=== PATIENT | male | born 1995 | race African-American/Black ===

== ENCOUNTER 2020-04-06 12:32 | Emergency (ER) | payer OTHER ==
[~2020-04-06] VITALS: Ht 182.9 cm; Wt 72.7 kg
[~2020-04-06 12:32] MED LIST: BENZ0.5T44 PO; LURA40TA2 PO
[2020-04-06] MEDS ORDERED: LIDOCAINE 1% 10 ML VIAL INJ ONE (13:30)
[2020-04-06] MEDS ORDERED: PERTUSS(ACELL),DIPH,TET VAC/PF 0.5 ML VIAL IM ONE (13:30)
[2020-04-06] MEDS ORDERED: POVIDONE-IODINE 10% 15 ML SOLUTION UD TP ONE (13:30)
[2020-04-06] MEDS ORDERED: BACITRACIN 0.9 GM PACKET OINTMENT TP ONE (15:30)
[2020-04-06 16:41] VITALS: BP 129/78
== END 2020-04-06 16:44 | disposition home or self-care (01) ==
LOC: EMS 12:32
DX: S61.412A Laceration without foreign body of left hand, initial encounter (principal); F20.9 Schizophrenia, unspecified; R03.0 Elevated blood-pressure reading, without diagnosis of hypertension; W25.XXXA Contact with sharp glass, initial encounter; Y93.89 Activity, other specified; Y92.89 Other specified places as the place of occurrence of the external cause; Y99.8 Other external cause status
CPT/HCPCS: 12002; 73130; 90471; 90715; 99283; J3490

== ENCOUNTER 2020-04-08 08:49 | Emergency (ER) | payer OTHER ==
[~2020-04-08] VITALS: Ht 185.4 cm; Wt 72.7 kg
[2020-04-08 10:30] VITALS: BP 120/78
== END 2020-04-08 11:14 | disposition home or self-care (01) ==
LOC: EMS 08:52
DX: S61.412D Laceration without foreign body of left hand, subsequent encounter (principal); F20.9 Schizophrenia, unspecified; R03.0 Elevated blood-pressure reading, without diagnosis of hypertension; X58.XXXD Exposure to other specified factors, subsequent encounter
CPT/HCPCS: Z7502

== ENCOUNTER 2023-08-31 13:35 | Inpatient (IN) | payer MEDICAID, OTHER ==
[~2023-08-31] VITALS: Ht 185.4 cm; Wt 111.6 kg
[~2023-08-31 13:35] MED LIST changes: -BENZ0.5T44 PO; +BENZ0.5T6 PO
[2023-08-31] MEDS ORDERED: FAMO40TA7 PO (13:42)
[2023-08-31] MEDS ORDERED: TOPI-97 PO (13:42)
[2023-08-31] MEDS ORDERED: MIRT45TA83 PO (13:42)
[2023-08-31] MEDS ORDERED: AMLO5TAB66 PO (13:42)
[2023-08-31] MEDS ORDERED: BENZ1TAB84 PO (13:42)
[2023-08-31] MEDS ORDERED: RISP1TAB48 PO (13:42)
[2023-08-31] MEDS: ACTIVATED CHARCOAL 50 GM/240 ML SUSPENSION PO ONE (13:52)
[2023-08-31 14:20] LABS: BASOPHILS % (AUTO) 1.1 % (0.0-2.0); EOSINOPHILS % (AUTO) 1.9 % (1.0-6.0); LYMPHOCYTES # (AUTO) 1.9 K/uL (1.0-4.8); MEAN CORPUSCULAR HEMOGLOBIN 29.1 pg (26.0-34.0); MEAN CORPUSCULAR HGB CONC 33.3 G/dL (31.0-37.0); MEAN CORPUSCULAR VOLUME 87 fL (80-100); MONOCYTES # (AUTO) 0.3 K/uL (0.1-1.0); MONOCYTES % (AUTO) 7.4 % (2.0-9.0); NEUTROPHILS # (AUTO) 1.3 K/uL (1.8-7.7); NEUTROPHILS % (AUTO) 36.6 % (40.0-70.0); PLATELET COUNT (AUTO) 213 K/uL (150-450); RED BLOOD CELL COUNT(AUTO) 4.81 MIL/uL (4.50-5.90); RED CELL DISTRIBUTION WIDTH 13.6 % (11.5-14.5); WHITE BLOOD COUNT (AUTO) 3.6 K/uL (4.5-11.0)
[2023-08-31 14:33] LABS: COVID AG,FIA SOURCE NASAL SWAB
[2023-08-31 14:35] LABS: ANION GAP 15 mmol/L (8-16); CALCIUM, TOTAL 9.6 mg/dL (8.8-10.5); CARBON DIOXIDE 20 mmol/L (22-29); CHLORIDE 103 mmol/L (98-107); CREATININE 1.44 mg/dL (0.60-1.30); GLOMERULAR FILTR. RATE CALC > 60 mL/min (>60); GLUCOSE,RANDOM 108 mg/dL (70-110); POTASSIUM 3.3 mmol/L (3.5-5.1); SODIUM SERUM 138 mmol/L (136-145); UREA NITROGEN, BLOOD 18 mg/dL (7-18)
[2023-08-31] MEDS: SODIUM CHLORIDE 0.9% 1,000 ML IV ONE (14:36)
[2023-08-31 14:40] LABS: B-TYPE NATRIURETIC PEPTIDE 7 pg/mL (0-100); TROPONIN I-HIGH SENSITIVITY 21 ng/L (<76)
[2023-08-31 14:59] LABS: SARS-COV2 (COVID) ANTIGEN,FIA Negative (Negative)
[2023-08-31 15:01] LABS: ALANINE AMINOTRANSFERASE 30 U/L (12-78); ALBUMIN 4.2 g/dL (3.4-5.0); ALKALINE PHOSPHATASE 102 U/L (46-116); ASPARTATE AMINOTRANSFERASE 20 U/L (15-37); BILIRUBIN,TOTAL 0.7 mg/dL (0.1-1.0); CREATINE KINASE, TOTAL ONLY 145 U/L (39-308)
[2023-08-31 15:05] LABS: ACETAMINOPHEN < 2 mcg/mL (10-30)
[2023-08-31 15:23] LABS: ALCOHOL, BLOOD (SERUM) < 3 mg/dL (0-10)
[2023-08-31 15:30] LABS: SALICYLATE 0.4 mg/dL (2.8-20.0)
[2023-08-31] MEDS ORDERED: ZOLPIDEM TARTRATE 10 MG TABLET PO PRN (15:45)
[2023-08-31] MEDS ORDERED: LORazepam 2 MG TABLET PO PRN (15:45)
[2023-08-31] MEDS ORDERED: HALOPERIDOL 5 MG TABLET PO PRN (15:45)
[2023-08-31 19:35] LABS: APPEARANCE,URINE CLEAR (CLEAR); BILIRUBIN,URINE NEGATIVE (NEGATIVE); COLOR,URINE COLORLESS (YELLOW); GLUCOSE, URINE (UA) NEGATIVE (NEGATIVE); KETONES,URINE NEGATIVE (NEGATIVE); LEUKOCYTE ESTERASE ,URINE NEGATIVE (NEGATIVE); NITRATE,URINE NEGATIVE (NEGATIVE); OCCULT BLOOD,URINE NEGATIVE (NEGATIVE); PROTEIN,URINE NEGATIVE (NEGATIVE); SPECIFIC GRAVITIY, URINE 1.006 (1.003-1.030); UROBILINOGEN,URINE <=1.0 mg/dL (<=1.0)
[2023-08-31 19:40] LABS: ALCOHOL, URINE DRUG SCREEN NEGATIVE (NEGATIVE); AMPHET/METH SCREEN,URINE NEGATIVE (NEGATIVE); BARBITURATE SCREEN, URINE NEGATIVE (NEGATIVE); BENZODIAZEPINES SCREEN,URINE NEGATIVE (NEGATIVE); CANNABINOID SCREEN,URINE NEGATIVE (NEGATIVE); COCAINE SCREEN,URINE NEGATIVE (NEGATIVE); METHADONE SCREEN, URINE NEGATIVE (NEGATIVE); OPIATE SCREEN,URINE NEGATIVE (NEGATIVE); PHENCYCLIDINE SCREEN,URINE NEGATIVE (NEGATIVE)
[2023-08-31 22:35] VITALS: BP 126/85; PULSE 97; RESP 20; TEMP 97.2; O2SAT 97
[2023-08-31] MEDS ORDERED: PNEUMOCOCCAL VACCINE POLYVALENT 0.5 ML SYRINGE [PPSV23] IM. ONE (23:15)
[2023-09-01 08:16] VITALS: BP 134/86; PULSE 78; RESP 18; TEMP 97.5; O2SAT 98
[2023-09-01] MEDS ORDERED: MAGNESIUM HYDROXIDE SUSPENSION 30 ML UDCUP PO PRN (13:15)
[2023-09-01] MEDS ORDERED: MAG HYDROX/ALUMINUM HYD/SIMETH ES 30 ML SUSPENSION UDCUP PO PRN (13:15)
[2023-09-01] MEDS ORDERED: CloNIDine HCL 0.1 MG TABLET PO PRN (13:15)
[2023-09-01] MEDS ORDERED: IBUPROFEN 600 MG TABLET PO PRN (13:15)
[2023-09-01] MEDS ORDERED: LOPERAMIDE HCL 2 MG CAPSULE PO PRN (13:15)
[2023-09-01] MEDS ORDERED: ACETAMINOPHEN 325 MG TABLET PO PRN (13:15)
[2023-09-01] MEDS ORDERED: ALBUTEROL SULFATE HFA 90 MCG/PUFF 8 GM INHALER IH PRN (13:15)
[2023-09-01] MEDS ORDERED: ONDANSETRON HCL 4 MG TABLET PO PRN (13:15)
[2023-09-01] MEDS ORDERED: BACITRACIN 28 GM OINTMENT TP PRN (13:15)
[2023-09-01] MEDS ORDERED: BENZOCAINE/MENTHOL LOZENGE PO PRN (13:15)
[2023-09-01] MEDS ORDERED: PETROLATUM,WHITE 28 GM JELLY TP PRN (13:15)
[2023-09-01] MEDS ORDERED: OMEPRAZOLE 20 MG CAPSULE PO PRN (13:15)
[2023-09-01] MEDS ORDERED: DOCUSATE SODIUM 100 MG CAPSULE PO PRN (13:15)
[2023-09-01] MEDS: POTASSIUM CHLORIDE 20 MEQ ER TABLET PO ONE (13:29)
[2023-09-01] MEDS: RisperiDONE 1 MG TABLET PO SCH (16:26)
[2023-09-02 08:19] VITALS: BP 130/84; PULSE 83; RESP 18; TEMP 98.1; O2SAT 97
[2023-09-02] MEDS: INFLUENZA VIRUS VACCINE QVS 2023-24 (6MO+)/PF 60 MCG/0.5 ML SYRINGE IM. ONE (13:23)
[2023-09-02 20:51] VITALS: BP 123/81; PULSE 122; RESP 18; TEMP 98.2; O2SAT 97
[2023-09-03 08:38] VITALS: BP 130/86; PULSE 111; RESP 18; TEMP 98.9; O2SAT 97
[2023-09-03 12:07] LABS: TOPIRAMATE (TOPAMAX) LEVEL 5.8 ug/mL (2.0-25.0)
[2023-09-05 16:07] LABS: 9-OH RISPERIDONE LEVEL 20.5 ng/ml (Not Estab.)
== END 2023-09-03 15:24 | disposition home or self-care (01) | DRG 750 ==
LOC: EMS 13:36 → B2S 18:39
PROVIDERS: ADMIT Psychiatry & Neurology Psychiatry; ATTEND Psychiatry & Neurology Psychiatry
DX: F25.1 Schizoaffective disorder, depressive type (principal); D64.9 Anemia, unspecified; F41.9 Anxiety disorder, unspecified; Z91.51 Personal history of suicidal behavior; F84.0 Autistic disorder; Z20.822 Contact with and (suspected) exposure to COVID-19; T50.991A Poisoning by other drugs, medicaments and biological substances, accidental (unintentional), initial encounter; G47.00 Insomnia, unspecified; I10 Essential (primary) hypertension; K59.00 Constipation, unspecified; Y92.89 Other specified places as the place of occurrence of the external cause
CPT/HCPCS: 71045; 80053; 80201; 80307; 80342; 81003; 82550; 83880; 84132; 84484; 85025; 90686; 90732; 93005; G0480; G0481; 36415-L1; 36415-TC; G0008